=== PATIENT | male | born 1945 | race Caucasian/White ===

== ENCOUNTER 2021-03-27 16:31 | Inpatient (IN) ==
[~2021-03-27 16:31] MED LIST: ACETAMINOPHEN 500 MG TABLET PO PRN
[2021-03-27 17:29] LABS: Basophils % 0.7 % (0.0-0.8); Eosinophils # 0.1 10*3/uL (0.0-0.87); Eosinophils % 1.9 % (0.00-10.9); Hematocrit 20.6 VOL% (42.0-52.0); Immature Granulocytes % 0.5 %; Immature Granulocytes Absolute 0.02 #; Lymphocytes # 0.9 10*3/uL (1.4-4.0); Lymphocytes % 22.7 % (21.2-54.2); Mean Corpuscular HGB Conc 30.6 GM/DL (32-36); Mean Corpuscular Volume 92.8 FL (87-102); Mean Platelet Volume 10.7 FL (9.6-12.0); NRBC # 0.03 10*3/uL; Neutrophils % 60.2 % (38.7-73.9); Platelet Count 105 T/CUMM (130-400); Red Blood Count 2.22 MC/CUMM (3.8-5.5); Red Cell Distribution Width 15.5 % (9.3-17.3); White Blood Count 4.2 T/CUMM (4-12)
[2021-03-27 17:33] LABS: Hemoglobin 6.3 GM/DL (14.0-18.0)
[2021-03-27 17:50] LABS: Albumin 3.5 G/DL (3.4-5.0); Bilirubin,Total 1.1 MG/DL (0.20-1.00); Calcium 8.6 MG/DL (8.5-10.1); Osmolality,Calculated 277.8 MOS/KG (273-304); Potassium 3.2 MMOL/L (3.5-5.1); Total Protein 6.7 G/DL (6.4-8.2)
[2021-03-27 17:56] LABS: Hypochromasia Slight; Ovalocytes Few
[2021-03-27 17:57] LABS: Platelet Estimate Adequate
[2021-03-27] MEDS ORDERED: ACETAMINOPHEN 325 MG TABLET PO PRN (19:02)
[2021-03-27] MEDS ORDERED: ONDANSETRON 4 MG/2 ML VIAL IV PRN (19:02)
[2021-03-27] MEDS ORDERED: diphenhydrAMINE 50 MG/1 ML VIAL IV ONE (19:05)
[2021-03-27] MEDS ORDERED: SODIUM CHLORIDE 0.9% 1,000 ML IV PRN (21:30)
[2021-03-27] MEDS ORDERED: ACETAMINOPHEN 500 MG TABLET PO PRN (22:42)
[2021-03-27] MEDS ORDERED: diphenhydrAMINE 50 MG/1 ML VIAL IV PRN (22:43)
[2021-03-28] MEDS: PANTOPRAZOLE 40 MG TABLET PO SCH (09:11)
[2021-03-28] MEDS: FUROSEMIDE 40 MG TABLET PO SCH (10:10)
[2021-03-28] MEDS: FERROUS SULFATE 325 MG TABLET PO SCH (10:10)
[2021-03-28] MEDS: ROSUVASTATIN 10 MG TABLET PO SCH (10:10)
[2021-03-28] MEDS: MONTELUKAST 10 MG TABLET PO SCH (10:10)
[2021-03-28] MEDS: CHOLECALCIFEROL 5,000 UNIT TABLET PO SCH (10:10)
[2021-03-28] MEDS: COLESEVELAM 625 MG TABLET PO SCH (10:11)
[2021-03-28] MEDS: FLUCONAZOLE 100 MG TABLET PO SCH (10:11)
[2021-03-28] MEDS: ASCORBIC ACID 500 MG TABLET PO SCH (10:11)
[2021-03-28] MEDS: metFORMIN 500 MG TABLET PO SCH ×2 (10:11→21:09)
[2021-03-28] MEDS: sitaGLIPtin 100 MG TABLET PO SCH (10:11)
[2021-03-28] MEDS: NON-FORMULARY MEDICATION (Fluticasone-Umeclidin-Vilanter [Trelegy Ellipta] 200-62.5-25 mcg INH SCH (10:11)
[2021-03-28] MEDS: METOPROLOL SUCCINATE XL 50 MG TABLET PO SCH (10:11)
[2021-03-28] MEDS: NON-FORMULARY MEDICATION (Empagliflozin [Jardiance] 10 mg Tablet) PO SCH (10:11)
[2021-03-28] MEDS: THEOPHYLLINE ER 300 MG TABLET PO SCH ×2 (10:20→21:10)
[2021-03-28 10:31] LABS: Basophils % 0.9 % (0.0-0.8); Eosinophils # 0.1 10*3/uL (0.0-0.87); Eosinophils % 2.7 % (0.00-10.9); Hematocrit 24.8 VOL% (42.0-52.0); Hemoglobin 7.8 GM/DL (14.0-18.0); Immature Granulocytes % 0.6 %; Immature Granulocytes Absolute 0.02 #; Lymphocytes # 0.6 10*3/uL (1.4-4.0); Lymphocytes % 18.9 % (21.2-54.2); Mean Corpuscular HGB Conc 31.5 GM/DL (32-36); Mean Corpuscular Volume 91.9 FL (87-102); Mean Platelet Volume 10.6 FL (9.6-12.0); Monocytes % 9.6 % (1.7-12.7); NRBC # 0.02 10*3/uL; Neutrophils % 67.3 % (38.7-73.9); Red Cell Distribution Width 14.7 % (9.3-17.3); White Blood Count 3.3 T/CUMM (4-12)
[2021-03-28 10:32] LABS: Platelet Count 96 T/CUMM (130-400)
[2021-03-28 10:50] LABS: Albumin 3.1 G/DL (3.4-5.0); Bilirubin,Total 2.1 MG/DL (0.20-1.00); Calcium 8.3 MG/DL (8.5-10.1); Osmolality,Calculated 285.5 MOS/KG (273-304); Potassium 3.3 MMOL/L (3.5-5.1); Total Protein 6.4 G/DL (6.4-8.2)
[2021-03-28 11:44] LABS: Hypochromasia 1+; Microcytosis 1+; Platelet Estimate Decreased
[2021-03-28] MEDS ORDERED: DEXTROSE 50% 25 GM/50 ML VIAL IV PRN (13:20)
[2021-03-28] MEDS ORDERED: GLUCAGON 1 MG VIAL IM PRN (13:20)
[2021-03-28 16:10] LABS: Hematocrit 26.1 VOL% (42.0-52.0); Hemoglobin 8.5 GM/DL (14.0-18.0)
[2021-03-28] MEDS: ALBUTEROL 2.5 MG/3 ML NEB RESP TX SCH (19:57)
[2021-03-29 05:53] LABS: Basophils % 0.7 % (0.0-0.8); Eosinophils # 0.1 10*3/uL (0.0-0.87); Eosinophils % 4.7 % (0.00-10.9); Hematocrit 24.3 VOL% (42.0-52.0); Hemoglobin 7.6 GM/DL (14.0-18.0); Immature Granulocytes % 0.4 %; Immature Granulocytes Absolute 0.01 #; Lymphocytes # 0.8 10*3/uL (1.4-4.0); Lymphocytes % 29.2 % (21.2-54.2); Mean Corpuscular HGB Conc 31.3 GM/DL (32-36); Mean Platelet Volume 11.3 FL (9.6-12.0); Monocytes % 14.2 % (1.7-12.7); NRBC # 0.03 10*3/uL; Neutrophils % 50.8 % (38.7-73.9); Red Cell Distribution Width 14.9 % (9.3-17.3); White Blood Count 2.7 T/CUMM (4-12)
[2021-03-29 05:56] LABS: Platelet Count 75 T/CUMM (130-400)
[2021-03-29 06:28] LABS: Hypochromasia 1+; Microcytosis 1+; Platelet Estimate Decreased
[2021-03-29] MEDS: ALBUTEROL 2.5 MG/3 ML NEB RESP TX SCH (07:27)
[2021-03-29] MEDS: CHOLECALCIFEROL 5,000 UNIT TABLET PO SCH (09:04)
[2021-03-29] MEDS: ROSUVASTATIN 10 MG TABLET PO SCH (09:04)
[2021-03-29] MEDS: NON-FORMULARY MEDICATION (Empagliflozin [Jardiance] 10 mg Tablet) PO SCH (09:05)
[2021-03-29] MEDS: COLESEVELAM 625 MG TABLET PO SCH (09:06)
[2021-03-29] MEDS: FLUCONAZOLE 100 MG TABLET PO SCH (09:07)
[2021-03-29] MEDS: FERROUS SULFATE 325 MG TABLET PO SCH (09:07)
[2021-03-29] MEDS: metFORMIN 500 MG TABLET PO SCH ×3 (09:08→23:02)
[2021-03-29] MEDS: NON-FORMULARY MEDICATION (Fluticasone-Umeclidin-Vilanter [Trelegy Ellipta] 200-62.5-25 mcg INH SCH (09:08)
[2021-03-29] MEDS: sitaGLIPtin 100 MG TABLET PO SCH (09:09)
[2021-03-29] MEDS: FUROSEMIDE 40 MG TABLET PO SCH (09:10)
[2021-03-29] MEDS: PANTOPRAZOLE 40 MG TABLET PO SCH (09:10)
[2021-03-29] MEDS: MONTELUKAST 10 MG TABLET PO SCH (09:17)
[2021-03-29] MEDS: THEOPHYLLINE ER 300 MG TABLET PO SCH ×2 (09:17→23:02)
[2021-03-29] MEDS: ASCORBIC ACID 500 MG TABLET PO SCH (09:18)
[2021-03-29] MEDS: METOPROLOL SUCCINATE XL 50 MG TABLET PO SCH (09:18)
[2021-03-29 14:25] LABS: Hematocrit 26.7 VOL% (42.0-52.0); Hemoglobin 8.4 GM/DL (14.0-18.0)
[2021-03-29] MEDS ORDERED: MAGNESIUM CITRATE 300 ML BOTTLE PO ONE (18:00)
[2021-03-30] MEDS: ALBUTEROL 2.5 MG/3 ML NEB RESP TX SCH ×2 (08:00→10:42)
[2021-03-30 08:14] LABS: Basophils % 0.9 % (0.0-0.8); Eosinophils # 0.2 10*3/uL (0.0-0.87); Eosinophils % 4.6 % (0.00-10.9); Hematocrit 25.3 VOL% (42.0-52.0); Immature Granulocytes % 0.9 %; Immature Granulocytes Absolute 0.03 #; Lymphocytes # 0.7 10*3/uL (1.4-4.0); Lymphocytes % 20.3 % (21.2-54.2); Mean Corpuscular HGB Conc 31.6 GM/DL (32-36); Mean Corpuscular Volume 89.4 FL (87-102); Mean Platelet Volume 10.7 FL (9.6-12.0); Monocytes % 11.2 % (1.7-12.7); Neutrophils % 62.1 % (38.7-73.9); Platelet Count 91 T/CUMM (130-400); Red Blood Count 2.83 MC/CUMM (3.8-5.5); Red Cell Distribution Width 15.3 % (9.3-17.3); White Blood Count 3.5 T/CUMM (4-12)
[2021-03-30 08:30] LABS: Hypochromasia 1+; Microcytosis 1+
[2021-03-30 08:31] LABS: Ovalocytes Slight; Platelet Estimate Decreased
[2021-03-30] MEDS: NON-FORMULARY MEDICATION (Empagliflozin [Jardiance] 10 mg Tablet) PO SCH (10:30)
[2021-03-30] MEDS: CHOLECALCIFEROL 5,000 UNIT TABLET PO SCH (10:43)
[2021-03-30] MEDS: ROSUVASTATIN 10 MG TABLET PO SCH (10:43)
[2021-03-30] MEDS: METOPROLOL SUCCINATE XL 50 MG TABLET PO SCH (10:43)
[2021-03-30] MEDS: THEOPHYLLINE ER 300 MG TABLET PO SCH (10:43)
[2021-03-30] MEDS: ASCORBIC ACID 500 MG TABLET PO SCH (10:44)
[2021-03-30] MEDS: FUROSEMIDE 40 MG TABLET PO SCH (10:44)
[2021-03-30] MEDS: metFORMIN 500 MG TABLET PO SCH ×2 (10:44→11:03)
[2021-03-30] MEDS: COLESEVELAM 625 MG TABLET PO SCH (10:44)
[2021-03-30] MEDS: MONTELUKAST 10 MG TABLET PO SCH (10:46)
[2021-03-30] MEDS: PANTOPRAZOLE 40 MG TABLET PO SCH (10:46)
[2021-03-30] MEDS: FLUCONAZOLE 100 MG TABLET PO SCH (11:03)
[2021-03-30] MEDS: sitaGLIPtin 100 MG TABLET PO SCH (11:03)
[2021-03-30] MEDS: NON-FORMULARY MEDICATION (Fluticasone-Umeclidin-Vilanter [Trelegy Ellipta] 200-62.5-25 mcg INH SCH (11:03)
[2021-03-30 11:51] VITALS: BP 138/85
[2021-03-30] MEDS ORDERED: FERRIC GLUCONATE COMPLEX 125 MG in SODIUM CHLORIDE 0.9% 100 ML IV ONE (15:00)
== END 2021-03-30 15:35 | disposition home or self-care (01) | DRG 378 ==
LOC: N.ED 16:31 → N.EDINP 16:31 → N.5E 19:17
PROVIDERS: ADMIT Family Medicine; ATTEND Family Medicine